=== PATIENT | female | born 1990 | race Caucasian/White ===

== ENCOUNTER 2017-10-29 08:54 | Emergency (ER) | payer BC ==
[~2017-10-29] VITALS: Ht 167.6 cm; Wt 83.5 kg
[~2017-10-29 08:54] MED LIST: PREN1TAB49 PO
[2017-10-29 08:56] VITALS: Ht 167.6 cm; Wt 83.5 kg
--- NOTE | 2017-10-29 09:54 | ERD ---
ER Documentation Chief Complaint Chief Complaint Pt presents with cramping and spotting for couple of weeks, . HPI Otherwise healthy 27-year-old female presenting with a chief complaint of spotting. Patient is 6 weeks as of last menstrual cycle. Patient has not seen GRIEVANCE MANAGER. Patient has had no symptoms in the past. . Denies any dysuria, hematuria, discharge, foul odor, abdominal pain, pelvic pain, similar symptoms in the past. No shortness of breath, chest pain, headache or stiffness of the neck. Patient has no other complaints and describes no other associated manifestations. Nursing notes have been reviewed and are consistent with history given. ROS All systems reviewed and are negative except as per history of present illness. Medications Home Meds Active Scripts Nitrofurantoin Monohyd Macrocr* (Macrobid*) 100 Mg Capsr, 100 MG PO BID for 14 Days, CAP Prov:VALENTINA NICHOLSON PA-C 10/29/17 Reported Medications Vits W-Ca,Fe,Fa(<1MG) () 1 Tab Tablet, 1 TAB PO DAILY 01/19/13 Allergies Allergies: Coded Allergies: No Known Allergies (Verified Allergy, 01/19/13) Uncoded Allergies: NKA (Allergy, 01/19/13) PMhx/Soc Medical and Surgical Hx: pt denies Medical Hx, pt denies Surgical Hx Hx Alcohol Use: No Hx Substance Use: No Hx Tobacco Use: No Physical Exam Vitals Vital Signs Date Time Temp Pulse Resp B/P Pulse Ox O2 Delivery O2 Flow Rate FiO2 10/29/17 08:56 98.2 79 18 148/70 99 Physical Exam Const: Healthy-appearing. Well-nourished. Well-developed. No acute distress. Abd: No suprapubic tenderness. Soft, non tender, non distended. No guarding, masses. Normal bowel sounds. No McBurney's point tenderness. Head: Normocephalic, Atraumatic. Eyes: Non-injected; No scleral erythema, discharge or foreign body. EOMI and STEPHEN bilaterally. Ears: Normal External Ears, EACs clear, TM normal bilaterally without erythema. Nose: Normal nose without discharge, septal deviation, or sinus tenderness. Oral: No oral edema visualized. Mucous membranes moist and pink. Neck: No cervical lymphadenopathy, masses or goiter palpated. Trachea midline. Supple ~ No meningismus. Pulm: Good air movement in upper and lower respiratory tracts. No dyspnea, stridor, tripoding or drooling. Clear to auscultation bilaterally. Cardio: Regular rate and rhythm; No murmurs, gallops or rubs auscultated. No JVD grossly observed. Radial and posterior tibial pulses 2+ bilaterally. No cyanosis. Capillary refill less than 2 seconds. MS: Normal motor strength, normal tone with gross examination. Skin: No petechiae or rashes. No ulcer, induration, jaundice. Good turgor. Back: No midline, flank or CVA tenderness. Ext: No cyanosis, edema or palpable cord. Normal movement of all extremities grossly observed. Neur: Awake, alert and oriented x3. Neurovascularly intact bilaterally. Psych: Normal Mood and Affect. Result Diagram: 10/29/17 0958 Results 24 hrs Laboratory Tests Test 10/29/17 09:56 10/29/17 09:58 Urine Color STRAW Urine Clarity CLEAR Urine pH 8.0 Urine Specific [place] 1.008 Urine Ketones TRACEmg/dL Urine Nitrite NEGATIVEmg/dL Urine Bilirubin NEGATIVEmg/dL Urine Urobilinogen NEGATIVEmg/dL Urine Leukocyte Esterase TRACELeu/ul Urine Microscopic RBC 1/HPF Urine Microscopic WBC 1/HPF Urine Bacteria FEW/HPF Urine Hemoglobin 3+mg/dL Urine Glucose NEGATIVEmg/dL Urine Total Protein NEGATIVEmg/dl White Blood Count 7.510^3/ul Red Blood Count 4.2210^6/ul Hemoglobin 13.4g/dl Hematocrit 39.8% Mean Corpuscular Volume 94.3fl Mean Corpuscular Hemoglobin 31.8pg Mean Corpuscular Hemoglobin Concent 33.7g/dl Red Cell Distribution Width 12.0% Platelet Count 70261^3/UL Mean Platelet Volume 11.3fl Neutrophils % 70.5% Lymphocytes % 23.2% Monocytes % 5.3% Eosinophils % 0.4% Basophils % 0.3% Nucleated Red Blood Cells % 0.0/100WBC Neutrophils # 5.310^3/ul Lymphocytes # 1.810^3/ul Monocytes # 0.410^3/ul Eosinophils # 0.010^3/ul Basophils # 0.010^3/ul Nucleated Red Blood Cells # 0.010^3/ul Beta HCG, Quantitative 435.5mIU/ml Procedures/MDM 27-year-old female presenting with the chief complaints of spotting. Last menstrual period 5-6 weeks ago. Home positive test. Not being followed by GRIEVANCE MANAGER. Ultrasound obtained revealed the followin. No intrauterine identified. 2. Thin 4 mm endometrium.. 3. Ovaries grossly unremarkable. 4. No complex adnexal masses. 5. No free fluid in the pelvis Labs revealed the following: Beta-hC Urinalysis: Trace leukocyte esterase CBC: WNL At this time I have little suspicion for ectopic , PID, acute abdomen, pyelonephritis. Most likely diagnosis missed versus threatened versus UTI. Patient will be given Macrobid and instructed to rest 2 days with follow-up with GRIEVANCE MANAGER. Results have been printed out and given to the patient. I have spoke with the patient regarding their condition and future management. They have verbally responded that they understand their status and treatment plan. The patients vitals are stable, and their current condition is appropriate for discharge. The patient will be given discharge instructions with return precautions. Departure Diagnosis: Primary Impression: Spontaneous Additional Impression: UTI (urinary tract infection) Urinary tract infection type: site unspecified Hematuria presence: with hematuria Qualified Code: N39.0 - Urinary tract infection with hematuria, site unspecified Condition: Stable Additional Instructions: Follow up with your GRIEVANCE MANAGER in 2 days. Be sure to take todays test results ( provided within this packet) with you to your appointment. If you do not have an GRIEVANCE MANAGER, a handout of locations with contact information will be provided to you. Follow all the recommendations we have previously discussed and the following written recommendations: If symptoms change or worsen, return to the emergency department immediately. Do not put anything in your vagina. Do not have sex, douche, or use tampons; these actions may increase your risk for infection and miscarriage. Rest as directed. Do not exercise or engage in strenuous activities; such activities may cause labor or miscarriage. If you have any further questions, ask before you leave the hospital, or contact the medical provider managing your . VALENTINA NICHOLSON PA-C Oct 29, 2017 09:54
[2017-10-29 10:30] LABS: BASOPHILS % 0.3 % (0.0-2.0); EOSINOPHILS % 0.4 % (0.0-7.0); HEMATOCRIT 39.8 % (37.0-47.0); HEMOGLOBIN 13.4 g/dl (12.0-16.0); LYMPHOCYTES # 1.8 10^3/ul (0.8-2.9); LYMPHOCYTES % 23.2 % (15.0-51.0); MEAN CORPUSCULAR HEMOGLOBIN 31.8 pg (29.0-33.0); MEAN CORPUSCULAR HGB CONC 33.7 g/dl (32.0-37.0); MEAN CORPUSCULAR VOLUME 94.3 fl (82.0-101.0); MEAN PLATELET VOLUME 11.3 fl (7.4-10.4); MONOCYTE # 0.4 10^3/ul (0.3-0.9); MONOCYTES % 5.3 % (0.0-11.0); NEUTROPHIL # 5.3 10^3/ul (1.6-7.5); NEUTROPHILS % 70.5 % (39.0-77.0); PLATELET COUNT 212 10^3/UL (140-415); RED BLOOD COUNT 4.22 10^6/ul (4.20-5.40); WHITE BLOOD COUNT 7.5 10^3/ul (4.8-10.8)
[2017-10-29 10:39] LABS: ADD UMIC YES; UR ASCORBIC ACID NEGATIVE (NEGATIVE); UR BACTERIA FEW /HPF (NONE SEEN); UR BILIRUBIN (Dip) NEGATIVE (NEGATIVE); UR BLOOD (Dip) 3+ mg/dL (NEGATIVE); UR CLARITY CLEAR (CLEAR); UR COLOR STRAW (YELLOW); UR GLUCOSE (Dip) NEGATIVE (NEGATIVE); UR KETONES (Dip) TRACE mg/dL (NEGATIVE); UR LEUKOCYTE ESTERASE (Dip) TRACE Leu/ul (NEGATIVE); UR NITRITE (Dip) NEGATIVE (NEGATIVE); UR RBC 1 /HPF (0-5); UR SPECIFIC GRAVITY (Dip) 1.008 (1.003-1.030); UR TOTAL PROTEIN (Dip) NEGATIVE (NEGATIVE); UR UROBILINOGEN (Dip) NEGATIVE (NEGATIVE)
--- NOTE | 2017-10-29 11:23 | RADRPT ---
PROCEDURE: US Pelvis. CLINICAL INDICATION: Vaginal bleeding TECHNIQUE: Transabdominal and transvaginal pelvic ultrasound are performed. COMPARISON: None. FINDINGS: The uterus is normal in echogenicity and anteverted in orientation. The uterus measures 6.9 x 3.5 x 3.8 cm. No focal fibroids are identified. A normal endometrium is identified measuring 4 mm. No i ntrauterine is seen.. The cervix is normal in appearance. Both ovaries are identified, and normal in size, shape, and appearance. A 2 cm dominant follicle is noted within the right ovary. No complex adnexal masses are noted.. Normal Doppler flow is noted o f both ovaries. The right ovary measures 4.1 x 2.6 x 2.5 cm, and the left ovary measures 3.3 x 1.9 x 1.9 cm There is no free fluid in the pelvis IMPRESSION: 1. No intrauterine identified. 2. Thin 4 mm endometrium.. 3. Ovaries grossly unremarkable. 4. No complex adnexal masses. 5. No free fluid in the pelvis RPTAT: .Wade Buckley MD, MD Date Time Electronically viewed and signed by .Wade Buckley MD, MD on 10/29/2017 11:23 .W/
[2017-10-29] MEDS ORDERED: NITR-58 PO (11:35)
== END 2017-10-29 12:15 | disposition home or self-care (01) ==
LOC: FTE 08:54
DX: O03.9 Complete or unspecified spontaneous abortion without complication (principal); O23.41 Unspecified infection of urinary tract in pregnancy, first trimester
CPT/HCPCS: 36415; 76801; 76817; 81001; 84702; 85025; 86900; 86901

== ENCOUNTER 2019-03-27 08:16 | Outpatient (CLI) | payer BC ==
[~2019-03-27] VITALS: Ht 167.6 cm; Wt 97.3 kg
[2019-03-27 08:20] VITALS: Ht 167.6 cm; Wt 97.3 kg
--- NOTE | 2019-03-27 09:48 | PN ---
Triage Information Date/Time Reason for visit: Oligohydramnios Weeks of Gestation 37 weeks /Para Diabetes: none Hypertention: none Objective Heart Rate: 120's Heart Rate Comments Reactive Disposition: Discharge Assessment/Plan CAITLIN 8 D/C home RISHABH HADDAD MD Mar 27, 2019 09:48
--- NOTE | 2019-03-27 10:29 | TRIAGE ---
OB Triage Datetime Report Generated by CPN: 03/27/2019 10:29 Datetime: 03/27/2019 10:04 Stage of : OB Triage Maternal Assessment Level of Consciousness: Fully Conscious DTR's/Clonus: DTRs 1+ Headache: Denies Breath Sounds, Left: Clear and Equal Breath Sounds, Right: Clear and Equal RUQ Epigastric Pain: Denies Labor Evaluation Frequency: IRREGULAR Monitor Mode: External Duration (sec)2399: 20-40 Quality: Mild Pattern: Normal: <= 5 Contractions in 10 Minutes Resting Tone [place]: Relaxed Heart Rate FHR Baseline Rate: 130 Monitor Mode: External US Variability: Moderate 6-25 bpm Accelerations: 15X15 Decelerations: None Category: Category I Pain Assessment Pain Scale: 0 Pain Presence: None/Denies Pain Type: N/A Pain Goal: 0 Vaginal Exam Membrane Status: Intact Datetime: 03/27/2019 09:21 Stage of : OB Triage Maternal Assessment Level of Consciousness: Fully Conscious DTR's/Clonus: DTRs 1+ Headache: Denies Blurred Vision: No Respiratory Effort: Unlabored Breath Sounds, Left: Clear and Equal Breath Sounds, Right: Clear and Equal RUQ Epigastric Pain: Denies Facial Edema: None Labor Evaluation Frequency: IRREGULAR Monitor Mode: External Duration (sec)2399: 20-40 Quality: Mild Pattern: Normal: <= 5 Contractions in 10 Minutes Resting Tone [place]: Relaxed Heart Rate FHR Baseline Rate: 130 Monitor Mode: External US Variability: Moderate 6-25 bpm Accelerations: 15X15 Decelerations: None Category: Category I Pain Assessment Pain Scale: 0 Pain Presence: None/Denies Pain Type: N/A Pain Goal: 0 Vaginal Exam Membrane Status: Intact Datetime: 03/27/2019 08:33 Maternal Assessment Level of Consciousness: Fully Conscious DTR's/Clonus: DTRs 1+ Headache: Denies Blurred Vision: No Respiratory Effort: Unlabored Breath Sounds, Left: Clear and Equal Breath Sounds, Right: Clear and Equal Nausea/Vomiting: Denies RUQ Epigastric Pain: Denies Facial Edema: None Labor Evaluation Frequency: X1 Monitor Mode: External Duration (sec)2399: 40 Quality: Mild Pattern: Normal: <= 5 Contractions in 10 Minutes Resting Tone [place]: Relaxed Heart Rate FHR Baseline Rate: 140 Monitor Mode: External US Variability: Moderate 6-25 bpm Accelerations: 10X10 Decelerations: None Category: Category I Pain Assessment Pain Scale: 0 Pain Presence: None/Denies Pain Type: N/A Pain Goal: 3 Vaginal Exam Membrane Status: Intact Datetime: 03/27/2019 08:22 Assessment Type: Triage Maternal Assessment Level of Consciousness: Fully Conscious DTR's/Clonus: DTRs 2+; No Clonus Headache: Denies Blurred Vision: No Respiratory Effort: Unlabored; Regular Rhythm; Equal Expansion Breath Sounds, Left: Clear and Equal Breath Sounds, Right: Clear and Equal Nausea/Vomiting: Denies RUQ Epigastric Pain: Denies Lower Extremities Edema: None Degree: None Upper Extremities Edema: None Degree: None Facial Edema: None Fall Risk Assessment History of Falling: (0) No Secondary Diagnosis: (0) No Ambulatory Aid: (0) Bedrest/Nurse Assist IV Therapy: (0) No Gait: (0) Normal/Bedrest/Immobile Mental Status: (0) Oriented to Own Ability Fall Score: 0 Fall Risk Score Definition: No Risk: No action required Datetime: 03/27/2019 08:12 Time of Arrival: 03/27/2019 08:12 EGA: 37.3 Arrived By: Ambulatory Arrived From: Dr. Mahoney Chief Complaint: PT CAME IN FOR NST AND BPP FOR OLIGO. PT DENIES LEAKING FLUID Movement: Present Contractions: Denies/Absent Rupture of Membranes: Denies Vaginal Discharge: Denies Recent Sexual Intercouse: Denies Abdominal Trauma: Not Applicable Additional Patient Complaints: NONE Provider Notified: DELSHAD Initial Plan: NST AND BPP Datetime: 01/09/2019 16:04 Stage of : OB Triage Datetime: 01/09/2019 12:09 EGA: 26.3 Datetime: 01/09/2019 12:06 Fall Score: 0 Fall Risk Score Definition: No Risk: No action required
== END 2019-03-27 10:05 | disposition home or self-care (01) ==
LOC: OBT 08:16 → L-D 08:16 → OBT 10:05
PROVIDERS: ATTEND Obstetrics & Gynecology
DX: O41.03X0 Oligohydramnios, third trimester, not applicable or unspecified (principal); Z3A.37 37 weeks gestation of pregnancy
CPT/HCPCS: 76818; Z7500; G0463

== ENCOUNTER 2019-04-07 19:47 | Inpatient (IN) | payer BC ==
[~2019-04-07] VITALS: Ht 167.6 cm; Wt 97.8 kg
[2019-04-07 21:34] VITALS: Ht 167.6 cm; Wt 97.8 kg
[2019-04-07] MEDS ORDERED: LACTATED RINGER'S 1,000 ML IV PRN (21:35)
[2019-04-07] MEDS ORDERED: BUTORPHANOL 2 MG INJ IV PRN (22:00)
[2019-04-07] MEDS ORDERED: METHYLERGONOVINE 0.2 MG INJ IM PRN (22:00)
[2019-04-07] MEDS ORDERED: OXYTOCIN 30 UNITS/LR 500 ML IV PRN (22:00)
[2019-04-07] MEDS ORDERED: LIDOCAINE 1% (MPF) 30 ML INJ INJ PRN (22:00)
[2019-04-07] MEDS ORDERED: CARBOPROST 250 MCG INJ IM PRN (22:00)
[2019-04-07] MEDS ORDERED: OXYTOCIN 30 UNITS/LR 500 ML IV SCH ×3 (22:00)
[2019-04-07] MEDS ORDERED: MISOPROSTOL 200 MCG TAB PR PRN (22:00)
[2019-04-07] MEDS: LACTATED RINGER'S 1,000 ML IV SCH (22:31)
[2019-04-07 22:33] VITALS: BP 112/53; PULSE 68; RESP 18
[2019-04-08] MEDS: LACTATED RINGER'S 1,000 ML IV SCH ×5 (05:11→23:04)
--- NOTE | 2019-04-08 14:19 | HP ---
Date/Time of Note Date/Time of Note DATE: 04/08/19 TIME: 14:10 OB - History Hx of Present Chief Complaint: induction of labor Estimated Due Date: April 14, 2019 : 4 Para: 2 Spontaneous : 1 Therapeutic : 0 Care: Good Care Ultrasounds: Normal mid trimester US Obstetrical Complications: None Medical Complications: None Past Family/Social History * Past Medical, Surgical, Family and Obstetric Histories reviewed from chart. GBS Status: Negative OB Admission Exam Vital Signs Vital Signs Vital Signs Date Temp Pulse Resp B/P (MAP) Pulse Ox O2 O2 Flow FiO2 Time Delivery Rate 04/07/19 98.3 68 18 112/53 22:33 (72) Physical Exam HEENT: WNL Heart: Rhythm Normal Lungs: Clear, Equal Abdomen: WNL Extremities: Normal Reflexes: Normal Cervical Dilatation: 2cm Effacement: 50% Station: -1 Membranes: Intact Heart Rate: 120's Accelerations: Accelerations Present Decelerations: No Decelerations Varibility: Moderate Last 72 hours Lab Results CBC & BMP 04/07/19 21:10 OB Assessment/Plan Reason for admission: induction of labor Plan: Induction Induction Method: per Pitocin Protocol RISHABH HADDAD MD April 08, 2019 14:19
--- NOTE | 2019-04-08 18:08 | PREAC ---
Date/Time of Note Date/Time of Note DATE: 04/08/19 TIME: 18:07 Anesthesia Eval and Record Evaluation Time Pre-Procedure Interview DATE: 04/08/19 TIME: 18:07 Age 28 Sex female NPO: 8 hrs Preoperative diagnosis IUP Planned procedure L&D Epidural Past Medical History Past Medical History: None Surgery & Anesthesia Issues No known issue Meds Anticoagulation: No Beta [place] within 24 hr: No Reason Beta Francisco not given: Pt. not on B-Francisco Reported Medications Vits W-Ca,Fe,Fa(<1MG) () 1 Tab Tablet, 1 TAB PO DAILY 01/19/13 Current Medications Lactated Ringer's 1,000 ml @ 125 mls/hr Q8H IV Last administered on 04/08/19at 17:41; Admin Dose 125 MLS/HR; Start 04/07/19 at 21:35 Butorphanol Tartrate (Stadol) 2 mg Q2H PRN IV .PAIN SCALE 6-10; Start 04/07/19 at 22:00 Lidocaine (Xylocaine 1% (Mpf)) 30 ml ONCE PRN INJ .EPISIOTOMY; Start 04/07/19 at 22:00 Oxytocin/Lactated Ringer's 500 ml @ 500 mls/hr ONCE POST IV ; Start 04/07/19 at 22:00 Oxytocin/Lactated Ringer's 500 ml @ 125 mls/hr POST IV ; Start 04/07/19 at 22:00 Lactated Ringer's 1,000 ml @ 2,000 mls/hr Q30M PRN IV .ANESTHESIA; Start 04/07 at 21:35 Oxytocin/Lactated Ringer's 500 ml @ 0 mls/hr ONCE PRN IV .VAGINAL BLEEDING; Start 04/07/19 at 22:00 Methylergonovine Maleate (Methergine) 0.2 mg ONCE PRN IM .VAGINAL BLEEDING; Start 04/07/19 at 22:00 Carboprost Tromethamine (Hemabate) 250 mcg ONCE PRN IM .VAGINAL BLEEDING; Start 04/07/19 at 22:00 Misoprostol (Cytotec) 1,000 mcg ONCE PRN [place] .VAGINAL BLEEDING; Start 04/07/19 at 22:00 Oxytocin/Lactated Ringer's 500 ml @ 0 mls/hr FOR INDUCTION IV Last administered on 04/07/19at 22:32; Admin Dose 1 MLS/HR; Start 04/07/19 at 22:00 Meds reviewed: Yes Allergies Coded Allergies: No Known Allergies (Verified Allergy, Unknown, 03/27/19) Uncoded Allergies: NKA (Allergy, 01/19/13) Allergies Reviewed: Yes Labs/Studies Labs Reviewed: Reviewed by anesthesiologist Result Diagram: 04/07/19 2110 Laboratory Tests 04/07/19 21:10 Blood Bank Test 04/07/19 21:10 Antibody Screen NEGATIVE Blood Type O POSITIVE Rh Immune Globulin Candidate NO test: Positive Studies: ECG Pre-procedure Exam Last vitals Vital Signs Date Temp Pulse Resp B/P (MAP) Pulse Ox O2 O2 Flow FiO2 Time Delivery Rate 04/07/19 98.3 68 18 112/53 22:33 (72) Airway: Adequate mouth opening, Adequate thyromental dist Mallampati: Mallampati II Teeth: Normal Lung: Normal Heart: Normal ASA Physical Status ASA physical status: 2 Emergency: None Planned Anesthetic Neuraxial: Epidural Planned Pain Management Epidural Pre-operative Attestations Prior to commencing anesthesia and surgery, the patient was re-evaluated, there was verification of: *The patient's identity *The results of appropriate recent lab work and preoperative vital signs *The above evaluation not changing prior to induction *Anesthetic plan, risk benefits, alternative and complications discussed with patient/family; questions answered; patient/family understands, accepts and wishes to proceed. WAGNER BETTS MD April 08, 2019 18:08
[2019-04-08] MEDS ORDERED: DIPHENHYDRAMINE 50 MG INJ IV PRN (18:30)
[2019-04-08] MEDS ORDERED: FENTAnyl 2MCG/ML-ROPIV 0.2% 100 ML BAG EPI SCH (18:30)
[2019-04-08] MEDS ORDERED: NALOXONE (0.4 MG/ML) INJ IV PRN (18:30)
[2019-04-08] MEDS ORDERED: ONDANSETRON 4 MG INJ IV PRN (18:30)
--- NOTE | 2019-04-09 01:08 | LDN ---
Date/Time of Note Date/Time of Note DATE: 04/09/19 TIME: 01:06 Delivery Summary Weeks of Gestation 39 weeks and 2 days Placenta Delivered: Spontaneously Meconium: none Episiotomy: No Perineal laceration: 0 Anesthesia type: Epidural Estimated blood loss: 100 Sponge & Needle done & correct: Yes All needle counts correct: Yes Any foreign bodies felt in the: No Infant Delivery Information Sex Infant Sex: male Apgars 1 Minute: 9 5 Minute: 9 Suctioning Nose & mouth suctioned at jane: No Delee suction performed: No Umbilical Cord Umbilical cord with: 3 Vessels Cord presentations: no nuchal cord Cord Blood was obtained: Yes Mother & Baby Disposition Disposition Mom & Baby to Maternity; Good: Yes RISHABH HADDAD MD April 09, 2019 01:08
[2019-04-09] MEDS ORDERED: LACTATED RINGER'S 1,000 ML IV* SCH (03:40)
[2019-04-09 04:00] VITALS: BP 112/53; PULSE 66; RESP 19
[2019-04-09] MEDS ORDERED: WITCH HAZEL/GLYCERIN PAD PR PRN (04:00)
[2019-04-09] MEDS ORDERED: DIBUCAINE 1% 30 GM OINT TOP PRN (04:00)
[2019-04-09] MEDS ORDERED: METHYLERGONOVINE 0.2 MG INJ IM PRN (04:00)
[2019-04-09] MEDS ORDERED: CARBOPROST 250 MCG INJ IM PRN (04:00)
[2019-04-09] MEDS ORDERED: OXYTOCIN 30 UNITS/LR 500 ML IV PRN (04:00)
[2019-04-09] MEDS ORDERED: MISOPROSTOL 200 MCG TAB PR PRN (04:00)
[2019-04-09] MEDS ORDERED: ACETAMINOPHEN 325 MG TAB PO PRN (04:00)
[2019-04-09] MEDS ORDERED: BENZOCAINE 20% 56 ML SPRAY TOP PRN (04:00)
[2019-04-09] MEDS: IBUPROFEN 600 MG TAB PO SCH ×4 (05:38→23:49)
[2019-04-09 07:40] VITALS: BP 115/60; PULSE 65; RESP 16
[2019-04-09] MEDS: SENNA/DOCUSATE NA (8.6MG/50MG) TAB PO SCH ×2 (09:28→21:21)
[2019-04-09 15:45] VITALS: BP 113/67; RESP 17
[2019-04-09 21:00] VITALS: BP 106/58; PULSE 71; RESP 18
[2019-04-10 04:00] VITALS: BP 121/61; PULSE 86; RESP 17
[2019-04-10] MEDS: IBUPROFEN 600 MG TAB PO SCH ×4 (05:41→23:11)
[2019-04-10 08:30] VITALS: BP 121/69; PULSE 55; RESP 20
[2019-04-10] MEDS: SENNA/DOCUSATE NA (8.6MG/50MG) TAB PO SCH ×2 (09:13→21:33)
[2019-04-10] MEDS: HYDROCODONE/APAP (5/325) TAB PO PRN ×2 (09:13→14:03)
--- NOTE | 2019-04-10 12:17 | DS ---
Date/Time of Note Date/Time of Note DATE: 04/10/19 TIME: 12:16 Obstetrical Discharge Record Final Diagnosis Final Diagnosis: Term delivered Vaginal Delivery Obstetrical Delivery: Spontaneous Complications Induction: Yes Condition on Discharge Physical Assessment Voiding: Yes Bowel Movement: Yes Breast: Soft, non-tender, Filling Fundus: Firm Calf Tenderness: No Patient Condition: Stable RISHABH HADDAD MD April 10, 2019 12:17
[2019-04-10 16:00] VITALS: BP 117/61; PULSE 67; RESP 18
[2019-04-10 20:00] VITALS: BP 128/54; PULSE 67; RESP 19
[2019-04-11 03:10] VITALS: BP 119/51; PULSE 62; RESP 20
[2019-04-11] MEDS: IBUPROFEN 600 MG TAB PO SCH ×2 (05:26→11:42)
[2019-04-11 08:10] VITALS: BP 110/64; PULSE 70; RESP 19
[2019-04-11] MEDS: SENNA/DOCUSATE NA (8.6MG/50MG) TAB PO SCH (08:45)
[2019-04-11] MEDS ORDERED: DIPHTH/TET/ACEL PERTUSS (ADULT) 0.5 ML VIAL IM* ONE (09:00)
--- NOTE | 2019-04-11 11:15 | PAC ---
Date/Time of Note Date/Time of Note DATE: 04/11/19 TIME: 11:15 Post-Anesthesia Notes Post-Anesthesia Note Last documented vital signs Vital Signs Date Temp Pulse Resp B/P (MAP) Pulse Ox O2 O2 Flow FiO2 Time Delivery Rate 04/11/19 98.5 70 19 110/64 Room Air 08:10 (79) Activity: WNL Respiratory function: WNL Cardiovascular function: WNL Mental status: Baseline Pain reasonably controlled: Yes Hydration appropriate: Yes Nausea/Vomiting absent: Yes Comments BP:125/68, P:74, Spo2:100%, T:98,9 WAGNER BETTS MD April 11, 2019 11:15
--- NOTE | 2019-04-12 13:01 | DELSUM ---
Delivery Summary A-C Datetime Report Generated by CPN: 04/12/2019 13:00 DELIVERY PERSONNEL Automation Mechanic: Yepez, Salma MATERNAL INFORMATION Delivery Anesthesia: Epidural Medications in Delivery: Pitocin Delivery QBL (ml): 100 Placenta Cultured: No Maternal Complications: None LABOR SUMMARY EDC: 04/12/2019 00:00 No. Babies in Womb: 1 Attempted: No Labor Anesthesia: Epidural LABOR INFORMATION Reason for Induction: Oligohydramnios Onset of Labor: 04/07/2019 19:55 Complete Dilatation: 04/08/2019 23:53 Cervical Ripening Agents: Other Other Ripening Agents: N/A Oxytocin: Induction Group B Beta Strep: Negative Steroids Given: None Reason Steroids Not Administered: Not Applicable MEMBRANES Membranes Rupture Method: Spontaneous Rupture of Membranes: 04/08/2019 21:24 Length of Rupture (hr): 3.43 Amniotic Fluid Color: Clear Amniotic Fluid Amount: Moderate Amniotic Fluid Odor: None STAGES OF LABOR Stage 1 hr: 27 Stage 1 min: 58 Stage 2 hr: 0 Stage 2 min: 57 Stage 3 hr: 0 Stage 3 min: 8 Total Time in Labor hr: 29 Total Time in Labor min: 3 VAGINAL DELIVERY Episiotomy: None Laceration Extension: N/A Laceration Type: None Laceration Repair: Not Applicable Initial Vag Sponge Count: 10 Final Vag Sponge Count: 10 Initial Vag Sharps Count: 1 Final Vag Sharps Count: 1 Sponge Count Correct: Yes Sharps Count Correct: Yes BABY A INFORMATION Infant Delivery Date/Time: 04/09/2019 00:50 Method of Delivery: Vaginal Born in Route : No : N/A Forceps: N/A Vacuum Extraction: N/A Shoulder Dystocia : N/A SHOULDER DYSTOCIA BABY A Infant Delivery Date/Time: 04/09/2019 00:50 PRESENTATION/POSITION BABY A Presentation: Cephalic Cephalic Presentation: Vertex Vertex Position: Left Occipital Anterior Breech Presentation: N/A PLACENTA INFORMATION BABY A Placenta Delivery Time : 04/09/2019 00:58 Placenta Method of Delivery: Expressed Placenta Status: Delivered SCORES BABY A Heart Rate 1 min: >100 bpm Resp Effort 1 min: Good Cry Reflex Irritability 1 min: Cough/Sneeze/Pulls Away Muscle Tone 1 min: Active Motion Color 1 min: Body [place], Extremit Blue Resuscitation Effort 1 min: Tactile Stimulation SCORE 1 MIN: 9 Heart Rate 5 min: >100 bpm Resp Effort 5 min: Good Cry Reflex Irritability 5 min: Cough/Sneeze/Pulls Away Muscle Tone 5 min: Active Motion Color 5 min: Body [place], Extremit Blue Resuscitation Effort 5 min: N/A SCORE 5 MIN: 9 INFANT INFORMATION BABY A Gestational Age at Delivery: 39.4 Gestational Status: Full Term- 39- 40.6 Weeks Outcome : Liveborn Condition : Stable Infant Sex: Male IDENTIFICATION/MEDS BABY A ID Band Number: [id number] ID Band Location: Right Leg; Left Arm Sensor Applied: Yes Sensor Number: [id number] Sensor Location : Cord Clamp Vitamin K Given : Not Given Erythromycin Given: Not Given WEIGHT/LENGTH BABY A Birthweight (gm): 3380 Infant Weight (lb): 7 Infant Weight (oz): 7 Length (in): 20.00 Infant Length (cm): 50.80 CORD INFORMATION BABY A No. Cord Vessels: 3 Nuchal Cord : N/A Infant Suction: Mouth; Nose
== END 2019-04-11 13:00 | disposition home or self-care (01) | DRG 807 ==
LOC: L-D 19:47 → PP1 04-09 03:43
PROVIDERS: ADMIT Obstetrics & Gynecology; ATTEND Obstetrics & Gynecology
PROC: 10E0XZZ Delivery of Products of Conception, External Approach (ICD-10-PCS; principal; 2019-04-09)
DX: O80 Encounter for full-term uncomplicated delivery (principal); Z37.0 Single live birth; Z3A.39 39 weeks gestation of pregnancy
CPT/HCPCS: 62322; 85025; 85610; 85730; 86592; 86850; 86900; 86901; 87340; 99464; J2590; J3010; J7120